=== PATIENT | male | born 1945 | race Caucasian/White ===

== ENCOUNTER 2022-10-16 04:13 | Day surgery (SDC) | payer OTHER ==
[2022-10-15 09:58] VITALS: BMI 25.1
[2022-10-16 10:00] VITALS: PULSE 57; RESP 16
[2022-10-16 10:14] VITALS: BP 122/69; TEMP 98
== END 2022-10-16 10:06 | disposition home or self-care (01) ==
LOC: JASU-ENDO 04:13
PROVIDERS: ATTEND Internal Medicine Gastroenterology
PROC: 0DBL8ZX Excision of Transverse Colon, Via Natural or Artificial Opening Endoscopic, Diagnostic (ICD-10-PCS; 2022-10-16)
PROC: 0DBN8ZX Excision of Sigmoid Colon, Via Natural or Artificial Opening Endoscopic, Diagnostic (ICD-10-PCS; principal; 2022-10-16 09:00)
DX: Z12.11 Encounter for screening for malignant neoplasm of colon (principal); D12.3 Benign neoplasm of transverse colon; K63.5 Polyp of colon; K64.8 Other hemorrhoids; I10 Essential (primary) hypertension
CPT/HCPCS: 82962; 88305-TC

== ENCOUNTER 2023-09-02 07:01 | Day surgery (SDC) | payer OTHER ==
[2023-08-31 12:27] VITALS: BMI 25.1
[2023-09-02] MEDS ORDERED: NEO/POLYMYX B SULF/DEXAMETH OPHTHALMIC 5ML BOTTLE ONE ×2 (07:22→08:43)
[2023-09-02] MEDS ORDERED: TETRACAINE 0.5% OPHTH SOLN 2 ML BOTTLE ONE ×2 (07:22→08:43)
[2023-09-02] MEDS ORDERED: LIDOCAINE 1% P/F 10 MG/ML VIAL ONE ×2 (07:22→08:43)
[2023-09-02] MEDS ORDERED: EPINEPHrine/PF 1 MG/1 ML (1:1,000) AMPULE ONE (07:22)
[2023-09-02] MEDS ORDERED: CARBACHOL 0.01% INTRA-OCULAR 1.5 ML VIAL ONE ×2 (07:22→08:43)
[2023-09-02] MEDS ORDERED: BSS (NA/CA/MG/K) BALANCED SALT SOLUTION OPHTH SOLN 15 ML BOTTLE ONE ×2 (07:22→08:43)
[2023-09-02 08:10] VITALS: TEMP 97.5
[2023-09-02] MEDS: TROPICAMIDE 1% OPHTH SOLN 15 ML BOTTLE ONE (09:28)
[2023-09-02] MEDS: CIPROFLOXACIN 0.3% EYE DROPS 5 ML BOTTLE ONE (09:28)
[2023-09-02] MEDS: PHENYLEPHRINE 2.5% OPTHALMIC DROP 2ML BOTTLE ONE (09:28)
[2023-09-02] MEDS: CYCLOPENTOLATE 2% OPHTH SOLN 2 ML BOTTLE ONE (09:28)
[2023-09-02] MEDS ORDERED: hydrALAZINE HCL 20 MG/ML VIAL ONE (10:18)
[2023-09-02] MEDS ORDERED: MIDAZOLAM HCL 2 MG/2 ML SINGLE DOSE VIAL ONE (10:57)
[2023-09-02] MEDS ORDERED: PHENYLEPHRINE/KETOROLAC 4 ML VIAL IO ONE (11:01)
[2023-09-02 11:51] VITALS: RESP 19
[2023-09-02 12:09] VITALS: BP 143/71; PULSE 79
== END 2023-09-02 12:17 | disposition home or self-care (01) ==
LOC: FASU 07:01
PROVIDERS: ATTEND Ophthalmology
PROC: 08ND3ZZ Release Left Iris, Percutaneous Approach (ICD-10-PCS; 2023-09-02)
PROC: 08RK3JZ Replacement of Left Lens with Synthetic Substitute, Percutaneous Approach (ICD-10-PCS; principal; 2023-09-02 11:21)
DX: H26.8 Other specified cataract (principal); H21.542 Posterior synechiae (iris), left eye
CPT/HCPCS: 66984; V2632; 36415; 82010; 82962; J1097

== ENCOUNTER 2023-10-09 06:32 | Day surgery (SDC) | payer OTHER ==
[2023-10-01 16:34] VITALS: BMI 25.1
[2023-10-09] MEDS: PHENYLEPHRINE 2.5% OPTHALMIC DROP 2ML BOTTLE ONE (07:05)
[2023-10-09] MEDS: CIPROFLOXACIN 0.3% EYE DROPS 5 ML BOTTLE ONE (07:05)
[2023-10-09] MEDS: TROPICAMIDE 1% OPHTH SOLN 15 ML BOTTLE ONE (07:05)
[2023-10-09] MEDS: CYCLOPENTOLATE 2% OPHTH SOLN 2 ML BOTTLE ONE (07:05)
[2023-10-09] MEDS ORDERED: EPINEPHrine/PF 1 MG/1 ML (1:1,000) AMPULE ONE (07:22)
[2023-10-09] MEDS ORDERED: LIDOCAINE 1% P/F 10 MG/ML VIAL ONE (07:22)
[2023-10-09] MEDS ORDERED: CARBACHOL 0.01% INTRA-OCULAR 1.5 ML VIAL ONE ×2 (07:23→07:50)
[2023-10-09] MEDS ORDERED: BSS (NA/CA/MG/K) BALANCED SALT SOLUTION OPHTH SOLN 15 ML BOTTLE ONE ×2 (07:23→08:38)
[2023-10-09] MEDS ORDERED: NEO/POLYMYX B SULF/DEXAMETH OPHTHALMIC 5ML BOTTLE ONE (07:23)
[2023-10-09] MEDS ORDERED: TETRACAINE 0.5% OPHTH SOLN 2 ML BOTTLE ONE (07:23)
[2023-10-09] MEDS ORDERED: MIDAZOLAM HCL 2 MG/2 ML SINGLE DOSE VIAL ONE (07:40)
[2023-10-09 09:02] VITALS: RESP 18; TEMP 97.3
[2023-10-09 09:28] VITALS: BP 120/76; PULSE 64
== END 2023-10-09 09:28 | disposition home or self-care (01) ==
LOC: FASU 06:32
PROVIDERS: ATTEND Ophthalmology
PROC: 08RJ3JZ Replacement of Right Lens with Synthetic Substitute, Percutaneous Approach (ICD-10-PCS; principal; 2023-10-09 08:19)
DX: H26.8 Other specified cataract (principal)
CPT/HCPCS: 66984; V2632; 82962

== ENCOUNTER 2023-10-21 06:31 | Day surgery (SDC) | payer OTHER ==
[2023-10-15 15:10] VITALS: BMI 25.1
[2023-10-21] MEDS: CIPROFLOXACIN 0.3% EYE DROPS 5 ML BOTTLE ONE (06:40)
[2023-10-21] MEDS ORDERED: MIDAZOLAM HCL 2 MG/2 ML SINGLE DOSE VIAL ONE (07:15)
[2023-10-21] MEDS ORDERED: EPINEPHrine/PF 1 MG/1 ML (1:1,000) AMPULE ONE (07:15)
[2023-10-21] MEDS ORDERED: LIDOCAINE 1% P/F 10 MG/ML VIAL ONE (07:16)
[2023-10-21] MEDS ORDERED: TETRACAINE 0.5% OPHTH SOLN 2 ML BOTTLE ONE (07:16)
[2023-10-21] MEDS ORDERED: BSS (NA/CA/MG/K) BALANCED SALT SOLUTION OPHTH SOLN 15 ML BOTTLE ONE (07:16)
[2023-10-21] MEDS ORDERED: NEO/POLYMYX B SULF/DEXAMETH OPHTHALMIC 5ML BOTTLE ONE (07:16)
[2023-10-21] MEDS ORDERED: CARBACHOL 0.01% INTRA-OCULAR 1.5 ML VIAL ONE (07:16)
[2023-10-21 08:03] VITALS: RESP 17
[2023-10-21 08:35] VITALS: PULSE 58; TEMP 97.1
[2023-10-21 08:38] VITALS: BP 130/72
== END 2023-10-21 08:30 | disposition home or self-care (01) ==
LOC: FASU 06:31
PROVIDERS: ATTEND Ophthalmology
PROC: 089 Eye, Drainage (ICD-10-PCS; principal; 2023-10-21 07:58)
DX: H59.021 Cataract (lens) fragments in eye following cataract surgery, right eye (principal)
CPT/HCPCS: 82962